=== PATIENT | female | born 1955 | race Caucasian/White ===

== ENCOUNTER 2017-02-07 05:31 | Inpatient (IN) | payer BC ==
[2017-01-19 11:55] VITALS: BMI 34.0
--- NOTE | 2017-01-19 12:35 | PAT Medication Instructions ---
Service Date Jan 19, 2017. Current Home Medication List Acetaminophen (Tylenol Arthritis Ext Rel), 2 TAB PO TID Alpha-Lipoic Acid (Thioctic Ac (Alpha Lipoic Acid), 600 MG PO BID Ascorbic Acid (Vitamin C), 1,000 MG PO QAM Aspirin (Aspirin Ec), 81 MG PO QPM Calcium Carbonate-Vitamin D (Calcium + D), 1,000 UNITS PO QPM Fish Oil ([place]-3), 1 CAP PO TID Gabapentin (Neurontin), 100 MG PO TID Irbesartan (Avapro), 1 TAB PO QAM L-Methylfolate W/ Algae-Vitami (Metanx), 1 TAB PO BID Meclizine Hcl (Meclizine Hcl), 1 TAB PO PRN Metformin Hcl (Glucophage), 500 MG PO BID Multiple Vitamins W/ Minerals (One Daily For Women), 1 TAB PO QAM Oxycodone HCl (Oxycodone HCl), 5-10 MG PO Q4H PRN for Pain Pantoprazole (Protonix), 40 MG PO QAM Simvastatin (Zocor), 20 MG PO QPM Medication Instructions For Your Scheduled Surgery - Check with surgeon for instructions: Diclofenac - Hold the following medications 2 weeks prior to surgery: Fish Oil ([place]-3), 1 CAP PO TID - Hold the following medications 48 hours prior to surgery: Metformin Hcl (Glucophage), 500 MG PO BID - Hold the following medications the morning of surgery: Ascorbic Acid (Vitamin C), 1,000 MG PO QAM Alpha-Lipoic Acid (Thioctic Ac (Alpha Lipoic Acid), 600 MG PO BID L-Methylfolate W/ Algae-Vitami (Metanx), 1 TAB PO BID Irbesartan (Avapro), 1 TAB PO QAM Multiple Vitamins W/ Minerals (One Daily For Women), 1 TAB PO QAM - Take the following medications the morning of surgery with a sip of water: Acetaminophen (Tylenol Arthritis Ext Rel), 2 TAB PO TID (may take if needed up to 4 hours prior to surgery) Gabapentin (Neurontin), 100 MG PO TID Meclizine Hcl (Meclizine Hcl), 1 TAB PO PRN Oxycodone HCl (Oxycodone HCl), 5-10 MG PO Q4H PRN for Pain (may take if needed up to 4 hours prior to surgery) Pantoprazole (Protonix), 40 MG PO QAM - Take the following medications as scheduled the night before surgery: Aspirin (Aspirin Ec), 81 MG PO QPM Simvastatin (Zocor), 20 MG PO QPM Alpha-Lipoic Acid (Thioctic Ac (Alpha Lipoic Acid), 600 MG PO BID Acetaminophen (Tylenol Arthritis Ext Rel), 2 TAB PO TID L-Methylfolate W/ Algae-Vitami (Metanx), 1 TAB PO BID Gabapentin (Neurontin), 100 MG PO TID Meclizine Hcl (Meclizine Hcl), 1 TAB PO PRN Calcium Carbonate-Vitamin D (Calcium + D), 1,000 UNITS PO QPM Oxycodone HCl (Oxycodone HCl), 5-10 MG PO Q4H PRN for Pain If you have any questions please call us at [phone] or [phone] or [phone]
--- NOTE | 2017-01-19 13:30 | DIAGNOSTIC IMAGING REPORT ---
TWO VIEW CHEST CLINICAL HISTORY: Preoperative examination. FINDINGS: PA and lateral chest radiographs are compared to study dated 07/01/2015. The examination is degraded by large body habitus. The cardiomediastinal silhouette is unremarkable. There is mild elevation of the right hemidiaphragm. The lungs and pleural spaces are clear. There is no pneumothorax. The skeletal structures are osteopenic. The bony thorax appears intact. IMPRESSION: No active disease in the chest. Electronically signed by: Isai Cabrales M.D. 01/19/2017 1:29 PM Dictated Date/Time: 01/19/2017 1:19 PM
[2017-01-19 13:34] LABS: BASO % 0.6 %; BASO ABS # 0.04 K/uL (0-0.2); COMPLETE YES; EOS % 1.1 %; HEMATOCRIT 37.9 % (37-47); IG% 0.3 %; LYMPH % 31.5 %; LYMPH ABS # 2.09 K/uL (1.2-3.4); MEAN CELL VOLUME 89.2 fL (80-100); MEAN CORPUSCULAR HEMOGLOBIN 30.4 pg (25-34); MEAN PLATELET VOLUME 9.5 fL (7.4-10.4); MONO % 7.5 %; PLATELET COUNT 278 K/uL (130-400); RED BLOOD COUNT 4.25 M/uL (4.2-5.4); WHITE BLOOD COUNT 6.64 K/uL (4.8-10.8)
[2017-01-19 13:41] LABS: URINE APPEARANCE CLEAR (CLEAR); URINE BILIRUBIN NEG (NEG); URINE COLOR DK YELLOW; URINE EPITHELIAL CELL AUTO >30 /lpf (0-5); URINE NITRITE NEG (NEG); URINE SPECIFIC GRAVITY 1.034 (1.000-1.030); UROBILINOGEN NEG (NEG); ZZUR CULT IF INDIC CLEAN CATCH YES
[2017-01-19 13:42] LABS: MANUAL MICROSCOPIC REQUIRED? NO; REVIEW REQ? NO
[2017-01-19 14:29] LABS: BUN/CREATININE RATIO 36.6 (10-20); CALCIUM 10.4 mg/dl (8.5-10.1); CREATININE 0.76 mg/dl (0.60-1.20); POTASSIUM 4.9 mmol/L (3.5-5.1)
[2017-02-07] VITALS (9 sets, daily range): BP systolic 118–158; BP diastolic 66–93; PULSE 54–63; TEMP 36.5–36.8; O2SAT 93–97; Ht 162.6 cm; Wt 90.9 kg
[~2017-02-07] VITALS: Ht 162.6 cm; Wt 90.9 kg
[~2017-02-07 05:31] MED LIST: ACET1TAB84 PO; ALPH600C2 PO; ASCO10003 PO; ASPI81TA28 PO; CALC600T9 PO; GABA-112 PO; GLC/500 PO; IRBE-39 PO; L-ME1CAP3 PO; MECL1TAB42 PO; MULT1TAB22 PO; OMEG10007 PO; PANT40TA PO; RXC5 PO; SIMV20TA2 PO
[2017-02-07] MEDS ORDERED: LACTATED RINGER'S 1000ML 1,000 ML IV SCH (06:00)
[2017-02-07] MEDS ORDERED: CLINDAMYCIN 600 MG/54 ML D5W IV SCH (06:00)
[2017-02-07] MEDS ORDERED: MIDAZOLAM HCL 1 MG/ML 2ML VIAL ONE (06:35)
[2017-02-07] MEDS ORDERED: FENTANYL CITRATE INJ 50 MCG/1 ML 2 ML VIAL ONE ×3 (06:35→08:40)
[2017-02-07] MEDS ORDERED: BACITRACIN 50000 UNIT VIAL ONE (06:51)
[2017-02-07] MEDS ORDERED: BUPIVACAINE/EPINEPHRINE 0.5% MPF 1:200,000 30 ML VIAL ONE (06:51)
--- NOTE | 2017-02-07 07:20 | History & Physical Bridge Note ---
H&P Re-Evaluation Bridge Note: I have examined the patient, reviewed the History & Physical and in the interval since the performance of the History & Physical I have noted the following changes of clinical significance: No changes noted
--- NOTE | 2017-02-07 07:21 | History and Physical ---
History & Physical Date Feb 07, 2017. Chief Complaint Back and leg pain History of Present Illness The patient is a 61 year old female with complaints of back and leg pain Past Medical/Surgical History Medical Problems: (1) Lumbar stenosis with neurogenic claudication Additional History Hepatic Disease: No Endocrine Disorder: No Kidney Disease: No Hypertension: No Heart Disease: No Bleeding Tendencies: No Infectious Diseases: No Allergies Coded Allergies: CI Pigment Blue 63 (Verified Allergy, Unknown, RASH OVER BODY, 02/07/17) Oseltamivir (Verified Allergy, Unknown, RASH OVER BODY, 02/07/17) Clavulanic Acid (Verified Adverse Reaction, Unknown, ABDOMINAL PAIN, 02/07) Tolerates Amoxicillin Home Medications Scheduled Acetaminophen (Tylenol Arthritis Ext Rel), 2 TAB PO TID Alpha-Lipoic Acid (Thioctic Ac (Alpha Lipoic Acid), 600 MG PO BID Ascorbic Acid (Vitamin C), 1,000 MG PO QAM Aspirin (Aspirin Ec), 81 MG PO QPM Calcium Carbonate-Vitamin D (Calcium + D), 1,000 UNITS PO QPM Fish Oil ([place]-3), 1 CAP PO TID Gabapentin (Neurontin), 100 MG PO TID Irbesartan (Avapro), 1 TAB PO QAM L-Methylfolate W/ Algae-Vitami (Metanx), 1 TAB PO BID Meclizine Hcl (Meclizine Hcl), 1 TAB PO PRN Metformin Hcl (Glucophage), 500 MG PO BID Multiple Vitamins W/ Minerals (One Daily For Women), 1 TAB PO QAM Pantoprazole (Protonix), 40 MG PO QAM Simvastatin (Zocor), 20 MG PO QPM Scheduled PRN Oxycodone HCl (Oxycodone HCl), 5-10 MG PO Q4H PRN for Pain Physical Examination Skin: warm/dry, no rash Eyes: normal inspection, EOMI, sclerae normal ENT: normal ENT inspection, pharynx normal Head: normocephalic, atraumatic Neck: supple, no adenopathy, trachea midline Respiratory/Chest: lungs clear, normal breath sounds, no respiratory distress Cardiovascular: regular rate, rhythm, no edema, no murmur Abdomen / GI: normal bowel sounds, non tender Back: normal inspection Extremities: normal inspection, normal range of motion Neurologic/Psych: no motor/sensory deficits, alert, normal reflexes, oriented x 3 Diagnosis Lumbar spinal stenosis Plan of Treatment Decompression fusion L3 4 with removal of hardware L45
[2017-02-07] MEDS ORDERED: ONDANSETRON INJ 2 MG/ML 2 ML VIAL IV PRN ×2 (07:30→09:45)
[2017-02-07] MEDS ORDERED: EpHEDrine SULFATE INJ 50 MG/ML AMP IV PRN (07:30)
[2017-02-07] MEDS ORDERED: MoRPHine SULFATE 10 MG/ML CARP/VIAL IV PRN (07:30)
[2017-02-07] MEDS ORDERED: ATROPINE SULFATE 0.1 MG/ML 5ML SYR IV PRN (07:30)
[2017-02-07] MEDS ORDERED: FENTANYL CITRATE INJ 50 MCG/1 ML 2 ML VIAL IV PRN (07:30)
[2017-02-07] MEDS ORDERED: HYDROmorphone INJ 2 MG/ML SYR/VIAL ONE ×2 (07:53→09:24)
[2017-02-07] MEDS ORDERED: FLOSEAL HEMOSTATIC MATRIX 10ML TOP ONE (09:13)
[2017-02-07] MEDS ORDERED: ONDANSETRON INJ 2 MG/ML 2 ML VIAL ONE (09:15)
[2017-02-07] MEDS ORDERED: DEXAMETHASONE SOD INJ 4 MG/ML VIAL ONE (09:15)
[2017-02-07] MEDS ORDERED: PROPOFOL IV EMULSION 10 MG/ML 20 ML VIAL IV ONE (09:15)
[2017-02-07] MEDS ORDERED: ROCURONIUM BROMIDE 10 MG/ML 5 ML VIAL IV ONE (09:15)
[2017-02-07] MEDS ORDERED: EpHEDrine SULFATE 50MG/5ML SYR ONE (09:15)
[2017-02-07] MEDS ORDERED: LIDOCAINE HCL 2% 2 ML VIAL (20MG/ML) ONE (09:15)
[2017-02-07] MEDS ORDERED: SODIUM CHLORIDE 0.9% 1000ML 1,000 ML IV SCH (09:35)
[2017-02-07] MEDS ORDERED: GLYCOPYRROLATE INJ 0.2 MG/ML VIAL ONE (09:38)
[2017-02-07] MEDS ORDERED: ESMOLOL HCL 10 MG/ML 10 ML VIAL ONE (09:38)
[2017-02-07] MEDS ORDERED: NEOSTIGMINE METHYLSULFATE 1 MG/ML 10ML VIAL ONE (09:38)
[2017-02-07] MEDS ORDERED: KETOROLAC TROMETHAMINE 30 MG/ML VIAL ONE (09:38)
[2017-02-07] MEDS ORDERED: HYDROmorphone HCL 0.5MG/ML 50 ML CASSETTE ONE (09:44)
[2017-02-07] MEDS ORDERED: hydrOXYzine HCL 25 MG TAB PO PRN (09:45)
[2017-02-07] MEDS ORDERED: DO NOT ADMINISTER FLU VACCINE PRN ×3 (09:45)
[2017-02-07] MEDS ORDERED: LORAZEPAM 0.5 MG TAB PO PRN (09:45)
[2017-02-07] MEDS ORDERED: BISACODYL 10 MG SUPP PR PRN (09:45)
[2017-02-07] MEDS ORDERED: MAGNESIUM HYDROXIDE SUSP 30 ML UDC PO PRN (09:45)
[2017-02-07] MEDS ORDERED: ALUMINUM/MAGNESIUM SUSP 30 ML UDC PO PRN (09:45)
[2017-02-07] MEDS ORDERED: DO NOT ADMINISTER PNEUMOCOCCAL VACCINE PRN ×2 (09:45)
[2017-02-07] MEDS ORDERED: ACETAMINOPHEN IV 100 ML IV PRN (09:45)
[2017-02-07] MEDS ORDERED: PROMETHAZINE HCL INJ 12.5 MG in SODIUM CHLORIDE 0.9% 50ML 50 ML IV PRN (09:45)
[2017-02-07] MEDS ORDERED: METOCLOPRAMIDE HCL INJ 5 MG/ML 2 ML VIAL IV PRN (09:45)
[2017-02-07] MEDS ORDERED: LORAZEPAM INJ 0.5 MG in SYRINGE 0.75 ML IV PRN (09:45)
[2017-02-07] MEDS ORDERED: NALOXONE HCL 0.4 MG/1 ML VIAL/CARP IV PRN ×2 (09:45)
[2017-02-07] MEDS ORDERED: SOD PHOSPHATE/SOD BIPHOSPHATE ENEMA 132 ML BTL PR PRN (09:45)
[2017-02-07] MEDS ORDERED: FAMOTIDINE 20 MG TAB PO PRN (09:45)
--- NOTE | 2017-02-07 09:55 | [facility] Operative Report ---
Operative Report Operative Date Feb 07, 2017. Pre-Operative Diagnosis Lumbar spinal stenosis Post-Operative Diagnosis Lumbar spinal stenosis Procedure(s) Performed #1 removal posterior instrumentation L4 5. #2 expiration of fusion L4 5. #3 decompression medial facetectomies foraminotomies L2 3 L3 4. #4 posterior spinal fusion L3 4. #5 placement posterior segmental instrumentation L3 4 L4 5. #6 refusion L4 5. #7 placement peek cage 9 x 22 mm L4 5. #8 placement locally harvested morcellized autograft and posterior gutters. #9 placement of ostial amp bone graft in the interbody space and posterior lateral gutters. Surgeon Dr. Lefty Lowery Cereal Maker Surgeon(s) Jessa Bridges PA-C Estimated Blood Loss 325 ml Findings Severe spinal stenosis Specimens Permanent a. explanted hardware-Spine Description of Procedure Patient was met with preoperatively case discussed all questions are dressed. After informed consent obtained patient was taken to the operative suite intubated and placed in a prone position on the [place] table top Darron frame. All bony prominences were well-padded eyes inspected to ensure there is no external pressure placed upon them. This point the lumbar spine was prepped and draped in the normal sterile fashion. Sharp dissection with the assistance of Bovie cautery was performed onto an exposing the lamina and transverse processes of L3 and instrumentation at the L4 5 level bilaterally. Then proceeded remove the hardware bilaterally. Explored the fusion mass noting it to be intact. Then performed a complete laminectomy of L3 partial laminectomy of L2 addressing severe lateral recess and foraminal stenosis. Pedicle screws are then placed in L3 L4 L5 bilaterally with assistance of fluoroscopy the purposes kahlil placed. Through a transverse foraminal approach on the left complete discectomy was performed and plate created to subcortical bleeding bone and a 9 x 22 mm peek cage filled with ostial amp bone graft tapped in position. The rods and then locked and final position bilaterally. Transverse processes of L3 L4 burred to subcortical bleeding bone. Ostial amp and locally harvested morcellized autograft was placed in the posterior lateral gutters. 10 round VALE drain inserted. Incision was then closed with 1 Vicryl in the fascia 2-0 Vicryl subcutaneous cutaneously 4 Monocryl for final skin closure Steri-Strips sterile dressings placed. Patient we can taken to PACU stable condition. Please note Jessa Jovel was present at the entire procedure involved in patient positioning complex portions of the surgery and final skin closure. I attest to the content of the Intraoperative Record and any orders documented therein. Any exceptions are noted below.
[2017-02-07] MEDS ORDERED: PHARMACY GLYCEMIC MGMT CONSULT PRN (10:10)
[2017-02-07] MEDS ORDERED: NovoLIN-R INSULIN PER UNIT CHARGE ONE (10:31)
[2017-02-07] MEDS: HYDROmorphone HCL 0.5MG/ML 50 ML CASSETTE IV PRN ×2 (10:41→22:56)
[2017-02-07] MEDS: LACTATED RINGER'S 1000ML 1,000 ML IV SCH ×3 (10:45→22:33)
--- NOTE | 2017-02-07 10:50 | Anesthesiology Progress Note ---
Anesthesia Post Op Note Date & Time Feb 07, 2017 at 10:50 Vital Signs Pain Intensity: 4 Vital Signs Past 12 Hours Date Time Temp Pulse Resp B/P (MAP) Pulse Ox O2 Delivery O2 Flow Rate FiO2 02/07/17 10:46 36.6 54 16 137/80 (99) 97 Nasal Cannula 4.0 02/07/17 10:30 58 14 158/74 97 Nasal Cannula 4 02/07/17 10:20 61 18 149/72 98 Nasal Cannula 4 02/07/17 10:10 36.1 56 14 136/77 97 Nasal Cannula 4 02/07/17 10:00 56 16 151/81 96 Nasal Cannula 4 02/07/17 09:50 78 15 175/101 99 Oxymask 10 02/07/17 09:40 71 14 174/90 99 Oxymask 10 02/07/17 09:34 36.9 87 12 154/102 97 Oxymask 10 02/07/17 06:03 36.7 63 18 158/93 95 Room Air Notes Mental Status: alert / awake / arousable, participated in evaluation Pt Amnestic to Procedure: Yes Nausea / Vomiting: adequately controlled Pain: adequately controlled Airway Patency, RR, SpO2: stable & adequate BP & HR: stable & adequate Hydration State: stable & adequate Anesthetic Complications: no major complications apparent
[2017-02-07] MEDS ORDERED: GLUCAGON FOR INJ 1 MG VIAL SQ PRN (11:45)
[2017-02-07] MEDS ORDERED: GLUCOSE 40% GEL 15 GM TUBE PO PRN (11:45)
[2017-02-07] MEDS ORDERED: GLUCOSE 10 TABS/TUBE PO PRN (11:45)
[2017-02-07] MEDS ORDERED: DEXTROSE 50% 50 ML SYR IV PRN (11:45)
[2017-02-07] MEDS: INSULIN ASPART 100 UNITS/ML 3 ML PEN SC SCH ×3 (13:36→21:45)
--- NOTE | 2017-02-07 14:17 | DIAGNOSTIC IMAGING REPORT ---
INTRAOPERATIVE FLUOROSCOPIC IMAGES OF THE LUMBAR SPINE CLINICAL HISTORY: Hardware removal. Decompression and fusion. COMPARISON STUDY: Lumbar spine fluoroscopic images August 03, 2015. Fluoroscopy time: 13 seconds. FINDINGS: These 2 fluoroscopic images demonstrate a previous L4-L5 discectomy with interval L3-L4 discectomy with interbody spacer placement. There is a posterior decompression. Bilateral pedicle screws are noted at the L3, L4 and L5 levels with interconnecting rods. Hardware is intact. IMPRESSION: Fluoroscopic images demonstrating discectomy and pedicle screw fusion, as discussed above. Electronically signed by: Chilango Nazario M.D. 02/07/2017 2:16 PM Dictated Date/Time: 02/07/2017 2:14 PM
--- NOTE | 2017-02-07 14:22 | Pharmacy Progress Note ---
Glycemic Control Intl Consult Date of Service Feb 07, 2017. Scope Glycemic Pharmacist consulted by Dr Lowery on 02/07/17 for glycemic control and to write orders per [facility] inpatient glycemic control protocol Objective Weight (Kilograms): 90.900 Accuchecks BSG (last 24hrs): Test 02/07/17 06:07 02/07/17 10:28 02/07/17 12:14 Bedside Glucose 124 mg/dl (70-90) 250 mg/dl (70-90) 216 mg/dl (70-90) Recent Pertinent Medications Outpatient Anti-diabetic Regimen: * Metformin 500 mg PO BID * A1c = 7.0 % 08/04/15 Risk Factors for Insulin Resistance: * Steroids: Dex 12 mg IV pre-op, then 6 mg IV q8h x 3 doses * Recent Surgery: POD #0 lumbar decompression and fusion with hardware removal * Diet: T2DM Assessment & Plan ASSESSMENT: * 61 yr old T2DM female admitted for lumbar decompression and fusion with hardware removal. * Pt ordered high dose IV steroids post-operatively. * Pt is maintained on oral antidiabetic agents as an outpatient * Will hold oral agents for admission and utilize SQ basal bolus insulin regimen which is the recommended regimen for inpatient glycemic control. * Will initiate weight based insulin dosing for insulin zain patient and titrate based on BSG trends. * ADA & AACE recommend a goal blood sugar range 140-180 mg/dl for the majority of critically ill & non-critically ill patients. However, more stringent targets may be selected in individual cases. Will utilize more stringent goal of 110-140mg/dl based on patient age & comorbidities. Additionally, tighter glycemic control is warranted to facilitate wound/infection healing. PLAN FOR INPATIENT GLYCEMIC CONTROL: * Holding outpatient oral diabetes medications * Basal insulin * Lantus 46 units SQ with dinner * Lantus 16 units SQ qAM * Bolus Insulin * NOVOLOG per scale ACHS * Goal Range: Low 110 mg/dL - High 140 mg/dL * Correction Factor: 20 mg/dL/unit * Nutritional / Prandial insulin per carb ratio of 1 unit per 6 grams CHO consumed * Overnight checks with coverage at 00 and 04 * Please note that the plan above was derived based on current level of insulin resistance and hospital stress. These recommendations are appropriate for inpatient admission only. Plan of care upon discharge will need to be reassessed to avoid potential outpatient hypo/hyperglycemia. Thank you.
[2017-02-07] MEDS: GABAPENTIN 100 MG CAP PO SCH ×2 (14:32→21:45)
[2017-02-07] MEDS: CLINDAMYCIN IV 600 MG in DEXTROSE 5% 50ML 50 ML IV SCH (15:53)
[2017-02-07] MEDS: DEXAMETHASONE INJ 6 MG in SYRINGE 0 ML IV SCH ×2 (15:53→23:46)
[2017-02-07] MEDS ORDERED: INSULIN GLARGINE SOLOSTAR 100 UNITS/ML 3 ML PEN SC ONE (17:45)
[2017-02-07] MEDS: ASPIRIN 81 MG ECTAB PO SCH (21:45)
[2017-02-07] MEDS: DOCUSATE SODIUM/SENNA 50/8.6MG TAB PO SCH (21:46)
[2017-02-07] MEDS: SIMVASTATIN 20 MG TAB PO SCH (21:46)
[2017-02-07] MEDS ORDERED: NURSING VERBAL MED ORDER ONE (23:15)
[2017-02-07] MEDS ORDERED: MECLIZINE HCL 25 MG TAB PO SCH (23:30)
[2017-02-08] MEDS: INSULIN ASPART 100 UNITS/ML 3 ML PEN SC SCH ×6 (00:03→20:44)
[2017-02-08] MEDS: CLINDAMYCIN IV 600 MG in DEXTROSE 5% 50ML 50 ML IV SCH (00:04)
[2017-02-08] MEDS ORDERED: MECLIZINE HCL 25 MG TAB PO PRN (01:00)
[2017-02-08 03:50] VITALS: BP 117/69; PULSE 64; TEMP 36.9; O2SAT 92
[2017-02-08] MEDS ORDERED: NURSING DECISION MEDICATION ORDER SCH (06:00)
[2017-02-08] MEDS ORDERED: HYDROmorphone INJ 0.5 MG/0.5 ML SYR IV PRN (06:00)
[2017-02-08] MEDS ORDERED: HYDROmorphone INJ 1 MG/ML SYR IV PRN (06:00)
[2017-02-08] MEDS ORDERED: DC PCA SCH (06:00)
[2017-02-08 06:42] LABS: BASO % 0.1 %; BASO ABS # 0.01 K/uL (0-0.2); COMPLETE YES; HEMATOCRIT 32.4 % (37-47); IG% 0.3 %; LYMPH % 5.6 %; LYMPH ABS # 0.97 K/uL (1.2-3.4); MEAN CELL VOLUME 89.5 fL (80-100); MEAN CORPUSCULAR HEMOGLOBIN 29.6 pg (25-34); MEAN PLATELET VOLUME 9.4 fL (7.4-10.4); MONO % 3.3 %; NEUT % 90.7 %; PLATELET COUNT 265 K/uL (130-400); RED BLOOD COUNT 3.62 M/uL (4.2-5.4); WHITE BLOOD COUNT 17.34 K/uL (4.8-10.8)
[2017-02-08 07:11] LABS: BUN/CREATININE RATIO 28.2 (10-20); CALCIUM 8.7 mg/dl (8.5-10.1); CREATININE 0.56 mg/dl (0.60-1.20); POTASSIUM 4.3 mmol/L (3.5-5.1)
[2017-02-08] MEDS ORDERED: RXC5 PO (07:33)
--- NOTE | 2017-02-08 07:33 | Discharge Instructions ---
Discharge Instructions Date of Service Feb 08, 2017. Admission Reason for Admission: Lumbar Spinal Stenosis Discharge Discharge Diagnosis / Problem: lumbar stenosis Discharge Goals Goal(s): Improve function Activity Recommendations Activity Limitations: per Instructions/Follow-up section . Instructions / Follow-Up Instructions / Follow-Up ACTIVITY RECOMMENDATIONS: SELF CARE INSTRUCTIONS AFTER THORACIC/LUMBAR FUSIONS 1. You may walk to your tolerance. It is good exercise for your legs and back. Expect some back and intermittent leg aches and pains. 2. You may perform "counter-top" level activities (make a sandwich, nixon with a project, etc.). 3. No bending or lifting of more than 10 pounds or back twisting of any nature (roll like a log when turning in bed). 4. You may ride in a car for 20-30 minutes at a time. No driving until after your first visit with your doctor. 5. Frequent changes of position and restricting sitting to 30 minutes at a time will help limit the amount of back spasms and stiffness you may experience. 6. You may discontinue the use of ambulatory aids (cane, crutches, etc.) once your strength and confidence allow. 7. You may plant maintenance manager the shower and let water strike your incision when you arrive home at least once daily. Do not take a tub bath, sit in a hot tub or go into a swimming pool until after your first recheck in the office. SPECIAL CARE INSTRUCTIONS: VERY IMPORTANT TO READ AND REVIEW A. Your surgical incision has been closed with a cosmetic suture under the skin that will dissolve in about 6 weeks. In 14 days, you can use a pair of clean scissors and cut the suture that is left outside of the skin at the ends of your incision. 1. The small skin tapes can be removed 7 days after surgery if they have not fallen off by that point. 2. You may keep the wound open to air as much as possible to promote healing after post-op day number 5 unless told otherwise by your doctor. 3. If you think the wound looks like it is becoming infected (redness or worsening drainage) and/or you are experiencing fever, chill or worsening back pain and muscle spasms, contact the office so that we may evaluate you as soon as possible. B. Complications are uncommon, but please contact us if you have any signs or symptoms of: 1. wound infection (fever higher than 102.5 degrees F, redness, separation of wound, drainage, or increasing pain from the incision) 2. blood clots in legs (pain, swelling, redness and warmth in legs) 3. urinary tract infection (fever higher than 102.5 degrees F, burning upon urination or increased frequency of urination) 4. nerve problems (inability to walk on your toes or heels, numbness, loss of bowel or bladder control) 5. any other symptoms that concern you C. Please call the office at if you have any concerns or questions about your operation or recovery. D. No smoking! Smoking drastically decreases the chance of a solid fusion. E. Do not take any anti-inflammatory medications (Indocin, Advil, Motrin, Aspirin, Naprosyn, etc.) as these may inhibit the chance of a solid fusion. Tylenol is okay to take for pain. MANAGING PAIN AFTER SPINAL SURGERY 1. Narcotic medication is intended for short-term use and will be provided for surgical pain. Surgical pain usually lasts for a period of 4-6 weeks. Narcotic medication includes Percocet, Vicodin, Darvocet, Tylenol #3 or Lortab. 2. Longer-term pain is more appropriately treated with non-narcotic medication such as Tylenol ES. 3. Muscle spasm is not appropriately treated with narcotics. Muscle relaxers such as Soma, Flexeril or Skelaxin can be used along with Tylenol ES. 4. Remember that we all live with some "aches and pains". This is not unusual or uncommon after an injury or as we get older. a. Back pain is expected and may include muscle spasms for 4 to 6 weeks after surgery. The pain should gradually improve. If the pain worsens for no apparent reason, please contact the office. b. Intermittent leg pain may also be experienced and should not be concerned about unless it worsens for no apparent reason. If so, please contact the office. 5. We will provide appropriate medication within the normal guidelines of their prescribed use. We will also be very cautious and aware of potential abuse and extended duration of patients' medication needs. a. Pain medications are for your comfort and to assist with sleep and rest so that the tissue can heal. They are not provided in order to return to normal activity and should not be used through the day. To do so or worsening pain at night can result from ongoing tissue damage and development of tolerance to the prescribed medicine. 6. Please allow 2-3 days to process refills. Prescriptions will not be mailed but must be picked up at the office. FOLLOW UP VISIT: Keep your scheduled follow-up appointment. Any questions, please call the office at . Current Hospital Diet Patient's current hospital diet: Diabetes Type 2 Diet Discharge Diet Recommended Diet: Regular Diet Procedures Procedures Performed: #1 removal posterior instrumentation L4 5. #2 expiration of fusion L4 5. #3 decompression medial facetectomies foraminotomies L2 3 L3 4. #4 posterior spinal fusion L3 4. #5 placement posterior segmental instrumentation L3 4 L4 5. #6 refusion L4 5. #7 placement peek cage 9 x 22 mm L4 5. #8 placement locally harvested morcellized autograft and posterior gutters. #9 placement of ostial amp bone graft in the interbody space and posterior lateral gutters. Pending Studies Studies pending at discharge: no Laboratory Results Hemoglobin A1c Test 02/08/17 06:17 Range/Units Medical Emergencies . Who to Call and When: Medical Emergencies: If at any time you feel your situation is an emergency, please call 911 immediately. . Non-Emergent Contact Non-Emergency issues call your: Primary Care Provider . "Provider Documentation" section prepared by Lefty Lowery. . VTE Core Measure Inpt VTE Proph given/why not?: Rima Villatoro, SCD's
[2017-02-08 07:46] VITALS: BP 102/56; PULSE 77; TEMP 37.1; O2SAT 98
[2017-02-08] MEDS: PANTOprazole SOD 40 MG TAB PO SCH (08:09)
[2017-02-08] MEDS: DEXAMETHASONE INJ 6 MG in SYRINGE 0 ML IV SCH (08:09)
[2017-02-08 08:20] LABS: ESTIMATED AVERAGE GLUCOSE 128 mg/dl; HA1C FLAG Normal (Normal)
--- NOTE | 2017-02-08 08:54 | Clinical Documentation Query ---
CLINICAL DOCUMENTATION QUERY 61-y/o female who has undergone fusion L3-L5 2/2 spinal stenosis. H&P only states a past medical history of lumbar stenosis with neurogenic claudication, however, the patient's medications build evidence for other past medical history. In your clinical opinion is this patient being managed for: ( ) GERD ( ) HTN ( ) Type II DM ( ) Arthritis ( ) Not Agree ( ) Other explanation of clinical findings (Please Explain) ( ) Unable to determine (Please Define) ( ) Need to Discuss The medical record reflects the following clinical findings, treatment, and risk factors. Clinical Indicators: H&P from previous surgery 08/03/15 stated this patient as having gerd, arthritis, dm, & htn. Treatment: continuation of home medications Risk Factors: Taking the following medications as an outpatient: Acetaminophen (Tylenol Arthritis Ext Rel), 2 TAB PO TID Alpha-Lipoic Acid (Thioctic Ac (Alpha Lipoic Acid), 600 MG PO BID Ascorbic Acid (Vitamin C), 1,000 MG PO QAM Aspirin (Aspirin Ec), 81 MG PO QPM Calcium Carbonate-Vitamin D (Calcium + D), 1,000 UNITS PO QPM Fish Oil ([place]-3), 1 CAP PO TID Gabapentin (Neurontin), 100 MG PO TID Irbesartan (Avapro), 1 TAB PO QAM L-Methylfolate W/ Algae-Vitami (Metanx), 1 TAB PO BID Meclizine Hcl (Meclizine Hcl), 1 TAB PO PRN Metformin Hcl (Glucophage), 500 MG PO BID Multiple Vitamins W/ Minerals (One Daily For Women), 1 TAB PO QAM Pantoprazole (Protonix), 40 MG PO QAM Simvastatin (Zocor), 20 MG PO QPM Please clarify and document your clinical opinion in the progress notes and discharge summary. Terms such as "probable", "suspected", "likely", "questionable", "possible", or "still to be ruled out" are acceptable. IF IN AGREEMENT, YOU MUST DOCUMENT ABOVE DIAGNOSTIC STATEMENT IN DAILY PROGRESS NOTES AND DISCHARGE SUMMARY. This document is not part of the patient's record. Thank You, Anand Kwong, RN [phone]
[2017-02-08] MEDS ORDERED: INSULIN GLARGINE SOLOSTAR 100 UNITS/ML 3 ML PEN SC SCH ×2 (09:00→21:00)
[2017-02-08] MEDS: IRBESARTAN 150 MG TAB PO SCH (09:01)
[2017-02-08] MEDS: GABAPENTIN 100 MG CAP PO SCH ×3 (09:01→21:16)
[2017-02-08] MEDS: OXYCODONE HCL IR 5 MG TAB (IMMEDIATE RELEASE) PO PRN ×2 (09:04→19:07)
--- NOTE | 2017-02-08 09:09 | Anesthesiology Progress Note ---
Anesthesia Post Op Note Date & Time Feb 08, 2017 at 09:08 Vital Signs Pain Intensity: 2.0 Vital Signs Past 12 Hours Date Time Temp Pulse Resp B/P (MAP) Pulse Ox O2 Delivery O2 Flow Rate FiO2 02/08/17 07:46 37.1 77 18 102/56 (71) 98 Room Air 02/08/17 03:50 36.9 64 16 117/69 (85) 92 Room Air 02/07/17 23:45 36.8 58 16 118/66 (83) 93 Room Air 02/07/17 23:40 Room Air Notes Mental Status: alert / awake / arousable, participated in evaluation Pt Amnestic to Procedure: Yes Nausea / Vomiting: adequately controlled Pain: adequately controlled Airway Patency, RR, SpO2: stable & adequate BP & HR: stable & adequate Hydration State: stable & adequate Anesthetic Complications: no major complications apparent
[2017-02-08] MEDS: ACETAMINOPHEN 500 MG TAB PO PRN (09:16)
[2017-02-08] MEDS: KETOROLAC TROMETHAMINE 30 MG/ML VIAL IV PRN (10:50)
--- NOTE | 2017-02-08 11:00 | Progress Note ---
Progress Note Date of Service Feb 08, 2017. Progress Note Patient is postop day #1 lumbar decompression fusion. Overall she is doing well. Marked improvement of her leg symptoms. Back pain controlled. Vital signs are stable. VALE drain decreasing probably. Assessment status post lumbar decompression fusion replant this time we will initiate physical therapy advance her bowel regimen anticipate home the next few days.
[2017-02-08 15:48] VITALS: BP 114/71; PULSE 58; TEMP 37.1; O2SAT 94
[2017-02-08] MEDS: SIMVASTATIN 20 MG TAB PO SCH (21:16)
[2017-02-08] MEDS: DOCUSATE SODIUM/SENNA 50/8.6MG TAB PO SCH (21:16)
[2017-02-08] MEDS: ASPIRIN 81 MG ECTAB PO SCH (21:16)
[2017-02-08 23:18] VITALS: BP 131/79; PULSE 63; TEMP 36.8; O2SAT 96
[2017-02-09] MEDS: POLYETHYLENE (MIRALAX) 17 GM PACK PO SCH ×4 (05:55→23:54)
[2017-02-09 07:01] VITALS: BP 134/81; PULSE 65; TEMP 36.9; O2SAT 96
[2017-02-09] MEDS: PANTOprazole SOD 40 MG TAB PO SCH (08:03)
[2017-02-09] MEDS: KETOROLAC TROMETHAMINE 30 MG/ML VIAL IV PRN ×3 (08:05→23:56)
[2017-02-09] MEDS: ACETAMINOPHEN 500 MG TAB PO PRN (08:06)
[2017-02-09] MEDS: IRBESARTAN 150 MG TAB PO SCH (08:48)
[2017-02-09] MEDS: GABAPENTIN 100 MG CAP PO SCH ×3 (08:48→20:33)
[2017-02-09] MEDS: INSULIN ASPART 100 UNITS/ML 3 ML PEN SC SCH ×4 (08:53→20:56)
--- NOTE | 2017-02-09 10:35 | Progress Note ---
Progress Note Date of Service Feb 09, 2017. Progress Note Patient is postop day 2. Back pain is controlled. Leg pain improved. She seemed bleeding well and tolerating physical therapy. On exam she is good strength testing appears comfortable. Assessment status post lumbar depression fusion replant this time will continue therapy today advance her bowel regiment anticipate home tomorrow
--- NOTE | 2017-02-09 10:58 | Pharmacy Progress Note ---
Glycemic: Assessment & Plan Date of Service Feb 09, 2017. Assessment & Plan The patient is currently receiving 56 units of insulin per day. BSGs ranging 124 - 178 mg/dl over the past 24hrs. * Basal insulin: Lantus 16 units in the morning and then 10 units last night * Correctional Insulin: Novolog Correction per scale ACHS Goal Range: Low 110 mg/dL - High 140 mg/dL Correction Factor: 20 mg/dL/unit * Prandial insulin: Per carb ratio of 1 unit per 5 grams CHO consumed BSGs continue to improve, will loosen Novolog parameters as needed. Restarted metformin tonight in preparation for discharge. Pharmacy will continue to monitor patient daily and write orders per [facility] inpatient glycemic control protocol. Thanks. Discharge Recommendations * Can continue same regimen at home based upon excellent glycemic control
[2017-02-09 15:13] VITALS: BP 138/78; PULSE 69; TEMP 37; O2SAT 97
[2017-02-09] MEDS: METFORMIN HCL 500 MG TAB PO SCH (18:20)
[2017-02-09] MEDS: DOCUSATE SODIUM/SENNA 50/8.6MG TAB PO SCH (20:33)
[2017-02-09] MEDS: SIMVASTATIN 20 MG TAB PO SCH (20:33)
[2017-02-09] MEDS: ASPIRIN 81 MG ECTAB PO SCH (20:33)
[2017-02-09 23:41] VITALS: BP 127/72; PULSE 61; TEMP 36.5; O2SAT 95
[2017-02-10] MEDS: POLYETHYLENE (MIRALAX) 17 GM PACK PO SCH (06:01)
[2017-02-10] MEDS: OXYCODONE HCL IR 5 MG TAB (IMMEDIATE RELEASE) PO PRN (07:39)
[2017-02-10] MEDS: GABAPENTIN 100 MG CAP PO SCH (07:41)
[2017-02-10] MEDS: PANTOprazole SOD 40 MG TAB PO SCH (07:41)
[2017-02-10] MEDS: METFORMIN HCL 500 MG TAB PO SCH (07:41)
[2017-02-10] MEDS: IRBESARTAN 150 MG TAB PO SCH (07:42)
[2017-02-10] MEDS: INSULIN ASPART 100 UNITS/ML 3 ML PEN SC SCH (08:39)
[2017-02-10 10:42] VITALS: BP 127/72; PULSE 61; TEMP 36.5; O2SAT 95
--- NOTE | 2017-02-10 11:42 | Discharge Summary ---
Orthopedic Discharge Summary Admission Date/Reason Feb 07, 2017 at 07:30 Lumbar Spinal Stenosis. Discharge Date/Disposition Feb 10, 2017 Home Diagnosis Principal Diagnosis: Lumbar spinal stenosis Admission Physical Exam As per Admitting History & Physical. Hospital Course Patient underwent lumbar decompression fusion tolerated this well as taken to the orthopedic floor postoperatively. Postoperative day #1 is up and amatory progressed to postoperative day #2 socially postoperative day #3 she was discharged home discharge orders and instructions can be found on the chart for further review. Discharge Instructions Please refer to the electronic Patient Visit Report (Discharge Instructions) for additional information.
== END 2017-02-10 11:44 | disposition home or self-care (01) | DRG 455 ==
LOC: C.ACU 05:31 → C.3E 07:30 → ENRESERV 09:57
PROVIDERS: ADMIT Orthopaedic Surgery Orthopaedic Surgery of the Spine; ATTEND Orthopaedic Surgery Orthopaedic Surgery of the Spine
PROC: 0SP004Z Removal of Internal Fixation Device from Lumbar Vertebral Joint, Open Approach (ICD-10-PCS; principal; 2017-02-07 07:30)
PROC: 0SG1071 Fusion of 2 or more Lumbar Vertebral Joints with Autologous Tissue Substitute, Posterior Approach, Posterior Column, Open Approach (ICD-10-PCS; principal; 2017-02-07 07:30)
PROC: 01NB0ZZ Release Lumbar Nerve, Open Approach (ICD-10-PCS; principal; 2017-02-07 07:30)
PROC: 0ST20ZZ Resection of Lumbar Vertebral Disc, Open Approach (ICD-10-PCS; principal; 2017-02-07 07:30)
PROC: 0SG00AJ Fusion of Lumbar Vertebral Joint with Interbody Fusion Device, Posterior Approach, Anterior Column, Open Approach (ICD-10-PCS; principal; 2017-02-07 07:30)
DX: M48.061 Spinal stenosis, lumbar region without neurogenic claudication (principal); I10 Essential (primary) hypertension; E78.5 Hyperlipidemia, unspecified; K21.9 Gastro-esophageal reflux disease without esophagitis; E11.42 Type 2 diabetes mellitus with diabetic polyneuropathy; E66.9 Obesity, unspecified; Z68.34 Body mass index [BMI] 34.0-34.9, adult; Z79.82 Long term (current) use of aspirin; Z79.84 Long term (current) use of oral hypoglycemic drugs; Z79.891 Long term (current) use of opiate analgesic; Z79.899 Other long term (current) drug therapy